=== PATIENT | female | born 1975 | race Caucasian/White ===

== ENCOUNTER 2016-06-18 05:44 | Day surgery (SDC) | payer OTHER ==
[~2016-06-18 05:44] MED LIST: DSS PO; ENDOCET1 TA3 PO; FOLIC ACID400 MC1 PO; MAG6464 MG PO; MIRALAX POWDER1 PKT PO; MULTI-VIT HP PO; NEUR300 PO; VITAMIN C100 MG PO
[2016-11-01] MEDS ORDERED: ULTRAM50 PO (11:03)
== END 2016-06-18 09:09 | disposition home or self-care (01) ==
LOC: SDC 05:44
PROVIDERS: Orthopaedic Surgery
PROC: 3E0S33Z Introduction of Anti-inflammatory into Epidural Space, Percutaneous Approach (ICD-10-PCS; 2016-06-18)
PROC: B01BZZZ Fluoroscopy of Spinal Cord (ICD-10-PCS; 2016-06-18)
PROC: 3E0S3BZ Introduction of Anesthetic Agent into Epidural Space, Percutaneous Approach (ICD-10-PCS; principal; 2016-06-18 08:15)
DX: M54.16 Radiculopathy, lumbar region (principal); Z79.899 Other long term (current) drug therapy; Z98.890 Other specified postprocedural states; Z90.49 Acquired absence of other specified parts of digestive tract; Z90.710 Acquired absence of both cervix and uterus
CPT/HCPCS: J1040; J2250; J3010; Q9967